=== PATIENT | female | born 1965 | race Caucasian/White ===

== ENCOUNTER 2020-05-11 11:27 | Observation (INO) | payer SELFPAY ==
[2020-05-11] VITALS (16 sets, daily range): BP systolic 87–153; BP diastolic 55–96; PULSE 92–120; RESP 13–28; TEMP 36.9; O2SAT 93–98; BMI 31.3
[2020-05-11] MEDS: EPINEPHrine 1 mg/mL INJ 0.3 MG IM ×3 (11:32→15:15)
[2020-05-11] MEDS: famotidine 20 mg/2 mL INJ 40 MG IVP (11:46)
[2020-05-11] MEDS: diphenhydrAMINE 50 mg/mL SDV 1mL IVP (11:47)
[2020-05-11] MEDS: sodium chloride 0.9% 1,000 ML 999 ML IV ×2 (11:56→14:59)
--- NOTE | 2020-05-11 12:24 | W.ED.ALLEREA ---
HPI - Allergic Reaction General: Chief complaint: Allergic Reaction Stated complaint: allergic reaction Time Seen by Provider: 05/11/20 11:31 Source: patient Mode of arrival: ambulatory Limitations: no limitations History of Present Illness: HPI narrative: Lesli is a nice 54-year-old female who comes in complaining of difficulty swallowing. Patient states that Sunday night she started to have itching on her hands and soles. She took a Benadryl and felt the next morning like she was better but still had itching in these areas. She is from [facility] and was bringing her father back here to his home and on the way she began to develop hives diffusely so they stopped at a hospital in [facility]. There she was given a dose of IM epinephrine, placed on a Medrol Dosepak and prescribed an antihistamine. Patient states she took her first dose of steroid this morning. She has been taking Benadryl but she cannot afford the EpiPen. The patient developed difficulty swallowing and a hoarse voice approximately 1 hour before arriving here. She does admit to 1 episode of diarrhea but denies any generalized weakness or low blood pressures. Upon thorough review the patient cannot think of any new foods, medicines or any new possible allergen source. Review of Systems General: Reports: ROS unobtainable due to medical condition PFSH ED PFSH: Medical History (Updated 05/11/20 @ 14:45 by Fredrick Redd MD) Anxiety Arrhythmia Depression Family history of coronary artery disease Surgical History (Updated 05/11/20 @ 14:45 by Fredrick Redd MD) H/O tubal ligation Social History (Updated 05/11/20 @ 14:45 by Fredrick Redd MD) Smoking and tobacco status: never smoked Alcohol intake: never Substance/Drug Use: never Physical Exam Const: COMMON NORMALS: no acute distress, patient oriented x3, no limitations, healthy appearing and well nourished GENERAL APPEARANCE: cooperative, well kempt and well developed HENMT: COMMON NORMALS: normocephalic, atraumatic, external ears normal, EAC's normal and Normal external nose present HEAD & SCALP: normal to inspection, normocephalic and atraumatic FACE & SINUS: normal facial exam and face symmetric NOSE: Normal external nose present and Normal nares present EXTERNAL EAR: Yes external ears normal EXTERNAL AUDITORY CANAL: EAC's normal MOUTH: Normal oral and palatal mucosa present, lip normal and tongue normal THROAT: posterior oropharynx normal and other (No stridor. Hoarse voice noted. Patient swallowing without any difficulty.) Eye: COMMON NORMALS: Equal, round and reactive pupils present and conjunctivae normal GENERAL EYE: appearance normal, both eyes and all related structures ALIGNMENT: Yes alignment normal PERIORBITAL: periorbital findings normal EYELID: eyelids normal CONJUNCTIVA: Yes conjunctivae normal SCLERA: sclerae normal PUPIL: Yes Equal, round and reactive pupils present Neck/C-Spine: COMMON NORMALS: full ROM, no lymphadenopathy, supple, no meningeal signs and no JVD GENERAL: Yes normal visual inspection and Yes trachea midline Chest: COMMONS NORMALS: normal inspection of the chest and normal palpation of entire chest wall Resp: COMMON NORMALS: normal respiratory effort, No retractions and No use of accessory muscles EFFORT & INSPECTION: Yes able to speak in complete sentences and Yes symmetric chest movement AUSCULTATION: no crackles, no rales, no rhonchi and no wheezes Cardio: COMMON NORMALS: no JVD, regular rate, regular rhythm, S1 normal heart sound present and S2 normal heart sound present RATE: regular rate RHYTHM: regular rhythm HEART SOUNDS: S1 normal heart sound present, S2 normal heart sound present, no click, no gallops, no murmurs, no rubs and abnormal split S2 GI: COMMON NORMALS: Soft to palpation and No hepatosplenomegaly present PALPATION: Yes Soft to palpation, No Tenderness to palpation present (GI), No Guarding due to palpation present (GI), No Rigid due to palpation, Yes No hepatosplenomegaly present, No Hernia present, No Palpable mass present and No Pulsatile mass present : COMMON NORMALS: Yes no CVA tenderness BLADDER/KIDNEY EXAM: Yes no CVA tenderness EXTERNAL FEMALE EXAM: No Hernia present Back/Pelvis: COMMON NORMALS: no CVA tenderness, thoracic and lumbar spine normal to inspection, no thoracic nor lumbar tenderness and thoraco-lumbar ROM normal Extremity: COMMON NORMALS: normal to inspection, full ROM, capillary refill normal, no joint enlargement, no clubbing, cyanosis or edema and no calf tenderness Neuro: COMMON NORMALS: patient oriented x3, CN's II-XII intact bilaterally, moves all extremities, no focal motor deficits and no sensory deficits noted MENINGEAL SIGNS: Yes no meningeal signs SPEECH: speech normal Psych: COMMON NORMALS: mental status grossly normal, Normal thought process present, cooperative, normal affect, speech normal and activity/motor behavior normal APPEARANCE: Yes well kempt SPEECH: Yes normal speech THOUGHT PROCESS: Normal thought process present Skin: COMMON NORMALS: turgor normal, no jaundice, no petechiae and no mottling NARRATIVE SKIN EXAM: Diffuse hives with significant swelling noted. GENERAL SKIN EXAM: turgor normal Course Vital Signs: Vital signs: Vital Signs Temperature 98.5 F 05/11/20 20:52 Pulse Rate 105 H 05/11/20 20:52 Respiratory Rate 22 H 05/11/20 20:52 Blood Pressure 126/77 05/11/20 20:52 Pulse Oximetry 94 05/11/20 21:32 MDM - Allergic Reaction MDM Narrative: Medical decision making narrative: 1306 -at this time the patient is doing better. Her hoarseness is improving slowly with occasional episodes of her natural voice coming back but yet the hoarseness does persist. The patient is not in respiratory distress and and she does not exhibit any stridor. Her hives are improving and her blood pressure has been stable. 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 I reviewed the case in full with Dr. Redd he is agreeable to admission to our ICE. He agrees with holding off prophylactic intubation as the patient is improving but just continuing to monitor her. As her blood pressure is okay he also agrees with just intermittent bolus dosing of IM epinephrine as needed. He agrees with 1 more dose here to see if that will resolve her hoarseness. I reviewed this plan with the patient and she is in agreement to stay. We will add an EKG and baseline labs since we are keeping her here in the hospital. Lab Data: Labs: Lab Results 05/11/20 05/11/20 05/11/20 Range/Units 11:38 11:38 11:38 WBC 14.6 H (4.0-10.0) 10^3/ uL RBC 5.05 (4.1-5.3) 10^6/u L Hgb 14.8 (11.5-15.3) g/dL Hct 46.6 (37.0-47.0) % MCV 92.3 (81-99) fL MCH 29.3 (28.0-34.0) pg MCHC 31.8 (30.0-36.0) g/dL RDW 13.4 (12.1-15.1) % Plt Count 411 H (130-400) 10^3/c mm MPV 10.7 H (7.4-10.4) fL Neut % (Auto) 80.5 % Lymph % (Auto) 13.7 % Desha % (Auto) 5.3 % Eos % (Auto) 0.0 % Baso % (Auto) 0.1 % Neut # (Auto) 11.8 H (1.8-7.7) 10^3/u L Lymph # (Auto) 2.0 (0.8-4.8) 10^3/u L Desha # (Auto) 0.8 (0.2-0.9) 10^3/u L Eos # (Auto) 0.0 (0.0-0.8) 10^3/u L Baso # (Auto) 0.0 (0.0-0.1) 10^3/u L Nucleated RBC % (a uto) 0 % Nucleated RBCs # 0.0 /100WBC PT 12.50 (10.5-13.3) SECO NDS INR 0.91 (0.8-1.2) Sodium 139 (136-145) mmol/L Potassium 3.9 (3.5-5.1) mmol/L Chloride 101 (98-107) mmol/L Carbon Dioxide 24 (22-29) mmol/L Anion Gap 17.9 (5-19) BUN 11 (6-20) mg/dL Creatinine 0.7 (0.5-0.9) mg/dL GFR Calculation 86.6 L (90-130) mL/min Glucose 105 (65-115) mg/dL Calculated Osmolal ity 284 L (285-295) mOsm/k g Calcium 10.5 (8.5-10.5) mg/dL Magnesium 2.3 (1.7-2.3) mg/dL Total Bilirubin 0.3 (0.15-1.2) mg/dL AST 23 (0-32) U/L ALT 20 (0-33) U/L Alkaline Phosphata se 74 (35-105) IU/L Total Protein 8.3 (6.6-8.7) g/dL Albumin 4.9 (3.5-5.2) g/dL Globulin 3.4 (1.3-4.6) g/dL EKG Data^: EKG 1: Attestation: I personally reviewed and interpreted this EKG as follows: EKG interpretation date: 05/11/20 EKG interpretation time: 13:20 Interpretation: Normal sinus rhythm at 93 beats a minute, normal axis, no acute ST-T wave changes, no blocks, normal intervals. Critical Care Time Critical Care Time: Critical Care Time: Yes Total Critical Care Time: 30 Attestation: Critical care time was necessitated as I had to give my patient undivided attention focusing on all parts of her care. Critical care time consisted of airway evaluation and reevaluation on multiple occasions. Critical care time consisted of careful history taking as well as reevaluating the patient's response to epinephrine. Critical care time consisted of coordinating care with hospitalist and arranging for admission. 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
--- NOTE | 2020-05-11 12:26 | XRR_ITS ---
PROCEDURE INFORMATION: Exam: XR Soft Tissue Neck Exam date and time: 05/11/2020 12:59 PM Age: 54 years old Clinical indication: Other: Hoarsness TECHNIQUE: Imaging protocol: XR of the soft tissues of the neck. COMPARISON: No relevant prior studies available. FINDINGS: Airway: Normal. No abnormal narrowing. Soft tissues: Normal. Normal epiglottis. Bones/joints: Mild osteoarthritis cervical spine XR/XR soft tissue neck 70145 IMPRESSION: Negative soft tissue examination Mild osteoarthritis cervical spine
--- NOTE | 2020-05-11 12:52 | ECG_ITS ---
[facility] Test Date: 2020-05-11 Pat Name: Lesli Livingston Department: Room: Gender: Female Rn Imaging: : 1965 Requested By: Kierra Cedillo Order Number: [id number] Abisai MD: Oliver Gomez M.D. Measurements Intervals Ina Rate: 93 P: 55 FL: 165 QRS: 15 QRSD: 94 T: 18 QT: 363 QTc: 451 Interpretive Statements SINUS RHYTHM POSSIBLE LEFT ATRIAL ENLARGEMENT [-0.1mV P WAVE IN V1/V2] NONSPECIFIC T-WAVE ABNORMALITY INTERPRETATION BASED ON A DEFAULT AGE OF 40 YEARS No previous ECG available for comparison Electronically Signed On 05-11-2020 23:43:25 CDT by Oliver Gomez M.D. [id number]
[2020-05-11 13:09] LABS: Basophils % 0.1 %; Hematocrit 46.6 % (37.0-47.0); Hemoglobin 14.8 g/dL (11.5-15.3); Lymphocytes % 13.7 %; Mean Corpuscular HGB Conc 31.8 g/dL (30.0-36.0); Mean Corpuscular Hemoglobin 29.3 pg (28.0-34.0); Mean Corpuscular Volume 92.3 fL (81-99); Mean Platelet Volume 10.7 fL (7.4-10.4); Monocytes # 0.8 10^3/uL (0.2-0.9); Monocytes % 5.3 %; Neutrophils # 11.8 10^3/uL (1.8-7.7); Neutrophils % 80.5 %; Nucleated Red Blood Cells % 0 %; Platelet Count 411 10^3/cmm (130-400); Red Blood Count 5.05 10^6/uL (4.1-5.3); Red Cell Distribution Width 13.4 % (12.1-15.1); White Blood Count 14.6 10^3/uL (4.0-10.0)
[2020-05-11 13:20] LABS: Alanine Aminotransferase 20 U/L (0-33); Albumin Level 4.9 g/dL (3.5-5.2); Alkaline Phosphatase 74 IU/L (35-105); Anion Gap 17.9 (5-19); Aspartate Amino Transferase 23 U/L (0-32); Blood Urea Nitrogen 11 mg/dL (6-20); Calcium 10.5 mg/dL (8.5-10.5); Carbon Dioxide 24 mmol/L (22-29); Chloride 101 mmol/L (98-107); Globulin 3.4 g/dL (1.3-4.6); Glomerular Filtration Rate 86.6 mL/min (90-130); Glucose 105 mg/dL (65-115); Magnesium 2.3 mg/dL (1.7-2.3); Osmolality Calculated 284 mOsm/kg (285-295); Potassium 3.9 mmol/L (3.5-5.1); Sodium 139 mmol/L (136-145); Total Bilirubin 0.3 mg/dL (0.15-1.2); Total Protein 8.3 g/dL (6.6-8.7)
[2020-05-11 13:40] LABS: INR 0.91 (0.8-1.2)
[2020-05-11 13:47] LABS: Bilirubin Urine Neg (NEGATIVE); Blood Urine Neg (Negative); Glucose Urine UA Norm (Normal); Ketones Urine Negative (Negative); Leukocyte Esterase Urine Negative (Negative); Nitrate Urine Negative (Negative); Protein Urine Neg (Negative); Specific Gravity, Urine 1.005 (1.005-1.030); Urine Appearance Clear (CLEAR); Urine Color Yellow (Yellow); Urobilinogen Urine Norm (Negative); pH Urine 6 (5-7)
[2020-05-11 13:48] LABS: Add Urine Culture? No; Bacteria Urine TRACE; Squamous Epithelial Cell Urine 0-4 (0-5); WBC Urine 0-4 /hpf (0-5)
[2020-05-11] MEDS: diphenhydrAMINE 50 mg/mL SDV 1mL 25 MG IVP ×3 (14:19→18:10)
--- NOTE | 2020-05-11 14:35 | PM.HP ---
Providers/Chief Complaint Chief Complaint: allergic reaction History of Present Illness Lesli Livingston is a 54 year old female with a past medical history of depression, postmenopausal state who presents to [facility] due to concerns for anaphylactic reaction. Patient is from [facility], she has been helping her father move up to [place], on Sunday morning, nothing out of the ordinary, she was helping pack away some of his stuff, she had dinner at her sister's house, nothing out of the ordinary, had chicken, steak, potatoes, denies any alcohol consumption, denies any drug use, denies any ÁNGELA inhibitor use, denies any exposure to poison jah, denies any bee stings, no denies fevers, denies exposure to COVID-19. Patient then went to her motel, when she said she had a headache, she took an NSAID, and went to sleep. Roughly about an hour after she started develop pruritus of her plantar aspect of her hand, and the plantar aspect of her feet, with pruritus and a rash. She itched throughout the night, her symptoms abated slightly. She started on her road trip from [place] to [place], the drive is roughly 16 hours, they got to [facility], which was they are stopping point. When she developed more of a diffuse rash, with the severe pruritus, no lip or tongue swelling or difficulty breathing at that point. She presented to the ER over there, was diagnosed with an allergic reaction, given steroids, Benadryl, Xyzal, and her symptoms abated. As soon as she got back to the motel roughly 10 PM, her symptoms returned, with diffuse pruritus, itching but everything was closed and she was unable to hop picker her medications. So she started to drive in the morning Sunday back to [place], 6 hours from [place], she stated that the rash was much more diffuse, severe itching, and she felt that her throat was closing up, she also had lip swelling, no difficulties's breathing, but did have trouble swallowing the pills that she had. She presented to [facility], diagnosed with an anaphylactic reaction, received Benadryl, Pepcid, epinephrine, rash has improved, lip swelling has improved, throat swelling has improved, it is able to talk, no significant desaturations, no oxygen requirement, hospitalist team was called for admission. 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 She does also state that she had an allergic reaction to the tape that is found on telemetry leads,, not anaphylactic reaction. No other allergic reactions that she knows of. No fevers, no chills, no nausea, no vomiting, no chest pain, shortness of breath. She does state that she recently started her estradiol progesterone, roughly 8 days ago for postmenopausal symptoms. Review of Systems Const: Denies: fever(s), chills, fatigue or malaise Eyes: Denies: change in vision or blurry vision ENMT: Denies: nasal congestion Resp: Denies: dyspnea, productive cough, non-productive cough or wheezing GI: Denies: abdominal pain, nausea, vomiting, hematemesis, diarrhea, constipation, hematochezia or melena : Denies: flank pain, dysuria or urinary frequency Musc: Denies: neck pain or back pain Neuro: Denies: headache(s), dizziness or vertigo Psych: Denies: anxiety or depression Endo: Denies: polyuria or polydipsia Medications/Allergies Home Medications Medication Instructions Recorded Confirmed Last Taken Type Effexor XR 75 mg PO DAILY 05/11/20 05/11/20 05/11/20 History Vitamin B-50 1 tab PO DAILY 05/11/20 05/11/20 Unknown History carvedilol 6.25 mg PO BID 05/11/20 05/11/20 05/11/20 History duloxetine 60 mg PO DAILY 05/11/20 05/11/20 05/10/20 History epinephrine [EpiPen] See Rx Instructions .ROUTE .COMPLEX 05/11/20 05/11/20 Unknown History estradiol-progesterone See Rx Instructions .ROUTE .COMPLEX 05/11/20 05/11/20 05/10/20 History levocetirizine [Xyzal] 5 - 10 mg PO DAILY 05/11/20 05/11/20 05/11/20 History methylprednisolone [Medrol (Jabari)] See Rx Instructions .ROUTE .COMPLEX 05/11/20 05/11/20 05/11/20 History Allergies Allergy/AdvReac Type Severity Reaction Status Date / Time amoxicillin Allergy Unknown Verified 05/11/20 12:42 cephalexin [From Keflex] Allergy Unknown Verified 05/11/20 12:42 ciprofloxacin [From Cipro] Allergy Unknown Verified 05/11/20 12:42 Penicillins Allergy Unknown Verified 05/11/20 12:42 PFSH Acute PFSH: Medical History (Updated 05/11/20 @ 14:45 by Fredrick Redd MD) Anxiety Arrhythmia Depression Family history of coronary artery disease Surgical History (Updated 05/11/20 @ 14:45 by Fredrick Redd MD) H/O tubal ligation Social History (Updated 05/11/20 @ 14:45 by Fredrick Redd MD) Smoking and tobacco status: never smoked Alcohol intake: never Substance/Drug Use: never Vitals/I&O/Wt Last Vital Signs Pulse 111 H 05/11/20 14:21 Resp 18 05/11/20 14:21 BP 139/96 05/11/20 14:21 Pulse Ox 93 05/11/20 14:21 Weight last 48 hrs Weight 80.286 kg Physical Exam Const: COMMON NORMALS: no acute distress and patient oriented x3 GENERAL APPEARANCE: cooperative and comfortable HENMT: COMMON NORMALS: normocephalic HEAD & SCALP: normocephalic Eye: COMMON NORMALS: Equal, round and reactive pupils present and EOMs intact bilaterally GENERAL EYE: appearance normal, both eyes and all related structures PUPIL: Yes Equal, round and reactive pupils present DIRECT OPHTHALMOSCOPY: Yes no papilledema Neck/C-Spine: COMMON NORMALS: full ROM, no lymphadenopathy, no JVD and Thyroid normal THYROID: Thyroid normal Lymph: LYMPHATIC: no lymphadenopathy noted Resp: COMMON NORMALS: normal respiratory effort, No retractions, No use of accessory muscles and clear to auscultation bilaterally AUSCULTATION: clear to auscultation bilaterally Cardio: COMMON NORMALS: no JVD, regular rhythm, S1 normal heart sound present, S2 normal heart sound present, No gallops present (Cardio), No clicks present (Cardio) and No murmurs present (Cardio) RATE: tachycardic RHYTHM: regular rhythm HEART SOUNDS: S1 normal heart sound present and S2 normal heart sound present GI: COMMON NORMALS: Normal to inspection, nondistended, normoactive bowel sounds present, Soft to palpation, non-tender and No hepatosplenomegaly present PALPATION: Yes Soft to palpation and Yes No hepatosplenomegaly present Extremity: COMMON NORMALS: normal to inspection, full ROM and no pedal edema Neuro: COMMON NORMALS: patient oriented x3, CN's II-XII intact bilaterally, moves all extremities and no focal motor deficits Psych: COMMON NORMALS: mental status grossly normal, Normal thought process present and cooperative THOUGHT PROCESS: Normal thought process present Skin: NARRATIVE SKIN EXAM: Diffuse maculopapular rash no lip swelling, no tongue swelling, no posterior pharyngeal swelling Data : 05/11/20 11:38 05/11/20 11:38 A&P Assessment and plan (1) Anaphylaxis: -Diffuse maculopapular rash, with pruritus, with lip swelling, throat swelling -Currently improving -Possible NSAID type 3-6 allergic reaction -Possible allergic reaction to estradiol Plan: -Admit to ICU for biphasic anaphylactic reaction -Avoid NSAID use, avoid estradiol -Epinephrine IM as needed, will consider epinephrine drip, if ineffective that she is on beta-gerri can try glucagon, hold beta-gerri for now -Continue telemetry monitoring -Continue Benadryl -Continue Pepcid -Continue cetirizine -Monitor respiratory status closely -Continue Solu-Medrol - Status: Acute Qualifiers: Encounter type: initial encounter Qualified Code(s): T78.2XXA - Anaphylactic shock, unspecified, initial encounter (2) Anxiety: Status: Acute (3) Depression: Status: Acute (4) Arrhythmia: Status: Acute Attestations Medical Necessity Statement*: Patient requires hospitalization, outpatient with observation, for anaphylactic reaction Coding Level of Care Code 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
[2020-05-11] MEDS: cetirizine 10 mg Tablet PO (15:13)
[2020-05-11] MEDS: sodium chloride 0.9% 1,000 ML 100 ML IV (15:27)
[2020-05-11] MEDS: cloNIDine 0.1 mg Tablet PO (19:05)
[2020-05-11] MEDS: hyDROXYzine 25 mg Capsule PO (19:05)
[2020-05-11] MEDS: enoxaparin 40 mg/0.4 mL Syringe SUBCUT (21:10)
[2020-05-11] MEDS: famotidine 20 mg/2 mL INJ IVP (21:11)
[2020-05-12] VITALS (18 sets, daily range): BP systolic 84–151; BP diastolic 55–92; PULSE 68–104; RESP 11–30; TEMP 36.9; O2SAT 91–97
[2020-05-12] MEDS: sodium chloride 0.9% 1,000 ML 100 ML IV (01:16)
[2020-05-12 05:00] LABS: Basophils % 0.1 %; Hematocrit 37.4 % (37.0-47.0); Hemoglobin 11.6 g/dL (11.5-15.3); Lymphocytes # 1.7 10^3/uL (0.8-4.8); Lymphocytes % 11.8 %; Mean Corpuscular Volume 93.5 fL (81-99); Monocytes # 0.5 10^3/uL (0.2-0.9); Monocytes % 3.6 %; Neutrophils # 11.9 10^3/uL (1.8-7.7); Neutrophils % 83.5 %; Nucleated Red Blood Cells % 0 %; Platelet Count 301 10^3/cmm (130-400); Red Cell Distribution Width 13.5 % (12.1-15.1); White Blood Count 14.2 10^3/uL (4.0-10.0)
--- NOTE | 2020-05-12 05:33 | PC.NURSE ---
SHIFT SUMMARY PT HAS REMAINED ALERT AND ORIENTATED. HIVES ARE STARTING TO DISAPPEAR. PT HAS NOT COMPLAINED OF ANYTHING LIKE WHAT SHE WAS ADMITTED WITH SO FAR IN HER THROAT FEELING LIKE ITS SWELLING. PT IV REMAINS PATENT. PT HAS BEEN AFEBRILE.
[2020-05-12 05:34] LABS: Alanine Aminotransferase 14 U/L (0-33); Albumin Level 3.8 g/dL (3.5-5.2); Alkaline Phosphatase 56 IU/L (35-105); Anion Gap 14.9 (5-19); Aspartate Amino Transferase 18 U/L (0-32); Blood Urea Nitrogen 11 mg/dL (6-20); Calcium 8.5 mg/dL (8.5-10.5); Carbon Dioxide 22 mmol/L (22-29); Chloride 111 mmol/L (98-107); Globulin 3.1 g/dL (1.3-4.6); Glomerular Filtration Rate 127.6 mL/min (90-130); Glucose 140 mg/dL (65-115); Magnesium 2.2 mg/dL (1.7-2.3); Osmolality Calculated 296 mOsm/kg (285-295); Phosphorus 3.5 mg/dL (2.5-4.5); Potassium 3.9 mmol/L (3.5-5.1); Sodium 144 mmol/L (136-145); Total Bilirubin 0.3 mg/dL (0.15-1.2); Total Protein 6.9 g/dL (6.6-8.7)
--- NOTE | 2020-05-12 07:55 | PC.NURSE ---
ROUNDED WITH DR HEATH, STOP IVF, STOP ESTRADIAL & NAPROXEN. SHE WILL NEED TO FOLLOW UP WITH AN [employer] [facility] WHEN SHE GETS BACK HOME. NO HIVES NOTED AT PRESENT. NO SWELLING TO LIPS OR TONGUE. PLAN TO MONITOR FOR A FEW HOURS THEN DISCHARGE. WILL DO MEDS TO BEDS FROM [facility]
--- NOTE | 2020-05-12 08:16 | PC.NURSE ---
Due to severity of patient's allergic reaction was unable to assess for suicidal ideation.
[2020-05-12] MEDS: duloxetine 20 mg Capsule 60 MG PO (10:01)
[2020-05-12] MEDS: cloNIDine 0.1 mg Tablet PO (10:02)
[2020-05-12] MEDS: hyDROXYzine 25 mg Capsule PO (10:02)
[2020-05-12] MEDS: venlafaxine ER (24HR) 75 mg Capsule PO (10:02)
[2020-05-12] MEDS: cetirizine 10 mg Tablet PO (10:02)
[2020-05-12] MEDS: famotidine 20 mg/2 mL INJ IVP (10:03)
--- NOTE | 2020-05-12 10:58 | PM.DCS ---
Discharge Providers Date of Admission: 05/11/20 13:06 Date of Discharge: May 12, 2020 Attending Provider at Admission: Fredrick Redd MD Attending Provider at Discharge: Fredrick Redd MD Diagnoses at Discharge Discharge Diagnosis (1) Anaphylaxis: Status: Acute Qualifiers: Encounter type: initial encounter Qualified Code(s): T78.2XXA - Anaphylactic shock, unspecified, initial encounter (2) Anxiety: Status: Acute (3) Depression: Status: Acute (4) Arrhythmia: Status: Acute Reason for Visit Reason for Visit: allergic reaction Hospital Course Discharge Summary: Lesli Livingston is a 54 year old female with a past medical history of depression, postmenopausal state who presents to [facility] due to concerns for anaphylactic reaction. Patient is from [facility], she has been helping her father move up to [place], on Sunday morning, nothing out of the ordinary, she was helping pack away some of his stuff, she had dinner at her sister's house, nothing out of the ordinary, had chicken, steak, potatoes, denies any alcohol consumption, denies any drug use, denies any ÁNGELA inhibitor use, denies any exposure to poison jah, denies any bee stings, no denies fevers, denies exposure to COVID-19. Patient then went to her motel, when she said she had a headache, she took an NSAID, and went to sleep. Roughly about an hour after she started develop pruritus of her plantar aspect of her hand, and the plantar aspect of her feet, with pruritus and a rash. She itched throughout the night, her symptoms abated slightly. She started on her road trip from [place] to [place], the drive is roughly 16 hours, they got to [facility], which was they are stopping point. When she developed more of a diffuse rash, with the severe pruritus, no lip or tongue swelling or difficulty breathing at that point. She presented to the ER over there, was diagnosed with an allergic reaction, given steroids, Benadryl, Xyzal, and her symptoms abated. 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 So she started to drive in the morning Sunday back to [place], 6 hours from [place], she stated that the rash was much more diffuse, severe itching, and she felt that her throat was closing up, she also had lip swelling, no difficulties's breathing, but did have trouble swallowing the pills that she had. She presented to [facility], diagnosed with an anaphylactic reaction, received Benadryl, Pepcid, epinephrine, rash has improved, lip swelling has improved, throat swelling has improved, it is able to talk, no significant desaturations, no oxygen requirement, hospitalist team was called for admission. 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 She does also state that she had an allergic reaction to the tape that is found on telemetry leads,, not anaphylactic reaction. No other allergic reactions that she knows of. No fevers, no chills, no nausea, no vomiting, no chest pain, shortness of breath. She does state that she recently started her estradiol progesterone, roughly 8 days ago for postmenopausal symptoms. In the emergency room patient received 1 dose of epinephrine, Benadryl, Pepcid, Solu-Medrol, her rash improved, pruritus improved, throat swelling improved, voice improved, intubation was not required, she protected her airway, no shortness of breath. Patient was admitted to the intensive care unit for monitoring for biphasic anaphylactic reaction, over the next 24 hours her rash became minimal, pruritus was minimal, voice improved, throat swelling improved, back to baseline, no shortness of breath. Patient was discharged on Benadryl and hydroxyzine as needed for pruritus and swelling and rash. Patient was advised to not drive and use sedating medications. She was prescribed a long prednisone taper to prevent a biphasic occurrence of her anaphylactoid reaction. In addition she was given an EpiPen for anaphylactoid reactions, and if she were to have to use the medication go immediately to the emergency room. Just before discharge she was doing well, minimal rash, minimal pruritus, no respiratory compromise, no airway compromise, no throat swelling. In terms of the cause of patient's anaphylactoid reaction, I think that it is a type III- aspirin allergy, more specifically a allergy to naproxen as her symptoms began after she took naproxen. I advised patient for now to avoid naproxen and any NSAIDs, and to follow-up with her regular physician for allergy testing and referral to an development vice president. In addition it could be a reaction to her estradiol progesterone, which I have advised her to stop using, and to follow-up with her regular physician. Physical Exam Const: COMMON NORMALS: no acute distress and patient oriented x3 HENMT: COMMON NORMALS: normocephalic HEAD & SCALP: normocephalic Neck/C-Spine: COMMON NORMALS: no JVD Resp: COMMON NORMALS: normal respiratory effort, No retractions, No use of accessory muscles and clear to auscultation bilaterally AUSCULTATION: clear to auscultation bilaterally Cardio: COMMON NORMALS: no JVD, regular rate, regular rhythm, S1 normal heart sound present and S2 normal heart sound present RATE: regular rate RHYTHM: regular rhythm HEART SOUNDS: S1 normal heart sound present and S2 normal heart sound present GI: COMMON NORMALS: Normal to inspection, nondistended, normoactive bowel sounds present, Soft to palpation, non-tender, No hepatosplenomegaly present, no masses and no bruits PALPATION: Yes Soft to palpation and Yes No hepatosplenomegaly present Extremity: COMMON NORMALS: capillary refill normal, no clubbing, cyanosis or edema, no calf tenderness and no pedal edema Neuro: COMMON NORMALS: patient oriented x3 Psych: COMMON NORMALS: mental status grossly normal Discharge Data Data Completed and Pending: Completed Studies During Hospitalization Category [id number] Stat Exams 05/11/20 12:26 Completed Pending at discharge Category Date Time Status Comprehensive Met abolic Panel AM LA BS Lab 05/13/20 04:00 Ordered Comprehensive Met abolic Panel AM LA BS Lab 05/14/20 04:00 Ordered Magnesium AM LABS Lab 05/13/20 04:00 Ordered Magnesium AM LABS Lab 05/14/20 04:00 Ordered Phosphorus AM LAB S Lab 05/13/20 04:00 Ordered Phosphorus AM LAB S Lab 05/14/20 04:00 Ordered Labs from last 24 hours 05/12/20 05/12/20 05/11/20 04:40 04:40 13:10 WBC 14.2 H RBC 4.00 L Hgb 11.6 Hct 37.4 MCV 93.5 MCH 29.0 MCHC 31.0 RDW 13.5 Plt Count 301 MPV 10.0 Neut % (Auto) 83.5 Lymph % (Auto) 11.8 Owen % (Auto) 3.6 Eos % (Auto) 0.0 Baso % (Auto) 0.1 Neut # (Auto) 11.9 H Lymph # (Auto) 1.7 Owen # (Auto) 0.5 Eos # (Auto) 0.0 Baso # (Auto) 0.0 Nucleated RBC % (a uto) 0 Nucleated RBCs # 0.0 PT INR Sodium 144 Potassium 3.9 Chloride 111 H Carbon Dioxide 22 Anion Gap 14.9 BUN 11 Creatinine 0.5 GFR Calculation 127.6 Glucose 140 H Calculated Osmolal ity 296 H Calcium 8.5 Phosphorus 3.5 Magnesium 2.2 Total Bilirubin 0.3 AST 18 ALT 14 Alkaline Phosphata se 56 Total Protein 6.9 Albumin 3.8 Globulin 3.1 Urine Color Yellow Urine Appearance Clear Urine pH 6 Ur Specific Gravit y 1.005 Urine Protein Neg Urine Glucose (UA) Norm Urine Ketones Negative Urine Blood Neg Urine Nitrate Negative Urine Bilirubin Neg Urine Urobilinogen Norm Ur Leukocyte Guerline ase Negative Urine RBC None Urine WBC 0-4 H Ur Squamous Epith Cells 0-4 H Urine Bacteria Trace 05/11/20 05/11/20 05/11/20 11:38 11:38 11:38 WBC 14.6 H RBC 5.05 Hgb 14.8 Hct 46.6 MCV 92.3 MCH 29.3 MCHC 31.8 RDW 13.4 Plt Count 411 H MPV 10.7 H Neut % (Auto) 80.5 Lymph % (Auto) 13.7 Owen % (Auto) 5.3 Eos % (Auto) 0.0 Baso % (Auto) 0.1 Neut # (Auto) 11.8 H Lymph # (Auto) 2.0 Owen # (Auto) 0.8 Eos # (Auto) 0.0 Baso # (Auto) 0.0 Nucleated RBC % (a uto) 0 Nucleated RBCs # 0.0 PT 12.50 INR 0.91 Sodium 139 Potassium 3.9 Chloride 101 Carbon Dioxide 24 Anion Gap 17.9 BUN 11 Creatinine 0.7 GFR Calculation 86.6 L Glucose 105 Calculated Osmolal ity 284 L Calcium 10.5 Phosphorus Magnesium 2.3 Total Bilirubin 0.3 AST 23 ALT 20 Alkaline Phosphata se 74 Total Protein 8.3 Albumin 4.9 Globulin 3.4 Urine Color Urine Appearance Urine pH Ur Specific Gravit y Urine Protein Urine Glucose (UA) Urine Ketones Urine Blood Urine Nitrate Urine Bilirubin Urine Urobilinogen Ur Leukocyte Guerline ase Urine RBC Urine WBC Ur Squamous Epith Cells Urine Bacteria Vitals: Last Vital Signs Temp 98.5 F 05/12/20 04:00 Pulse 100 05/12/20 08:32 Resp 25 H 05/12/20 08:32 BP 131/92 05/12/20 08:32 Pulse Ox 95 05/12/20 08:32 Discharge Plan Discharge Patient Disposition: Home, Self-Care Condition: Stable Prescriptions: New clonidine HCl 0.1 mg Tablet 0.1 mg PO BID 30 Days Qty: 60 RF: 0 cetirizine 10 mg Tablet 10 mg PO DAILY 10 Days Qty: 10 RF: 0 hydroxyzine pamoate 25 mg Capsule 25 mg PO QID PRN (Reason: Itching) 10 Days Qty: 40 RF: 0 Benadryl Allergy 25 mg tablet 25 mg PO Q8H PRN (Reason: allergic reaction) 10 Days Qty: 30 RF: 0 prednisone 10 mg tablet See Rx Instructions .ROUTE .COMPLEX Qty: 53 RF: 0 Pepcid 20 mg tablet 20 mg PO BID 10 Days Qty: 20 RF: 0 Continued duloxetine 20 mg Capsule,Delayed Release(Dr/Ec) 60 mg PO DAILY RF: 0 Effexor XR 75 mg PO DAILY RF: 0 Vitamin B-50 1 tab PO DAILY RF: 0 EpiPen 0.3 mg/0.3 mL Auto-Injector See Rx Instructions .ROUTE .COMPLEX RF: 0 Changed EpiPen 0.3 mg/0.3 mL Auto-Injector See Rx Instructions .ROUTE .COMPLEX Qty: 2 RF: 0 Held carvedilol 6.25 mg Tablet 6.25 mg PO BID RF: 0 Hold Instructions: Resume on 05/26/20. Until seen by primary care Discontinued methylprednisolone [Medrol (Ajbari)] 4 mg Tablets,Dose Pack See Rx Instructions .ROUTE .COMPLEX RF: 0 levocetirizine [Xyzal] 5 mg Tablet 5 - 10 mg PO DAILY RF: 0 estradiol-progesterone See Rx Instructions .ROUTE .COMPLEX RF: 0 Discharge Orders: Discharge Order (Routine); Ordered 05/12/20 Ordered By: Fredrick Redd Discharge Diet: Regular Discharge Activity: Resume usual activity Patient Instructions: Antihistamine (By mouth), Clonidine (By mouth), Famotidine (By mouth), Prednisone (By mouth), Diphenhydramine (By mouth), Epinephrine (Injection), Food Allergy (DC), Anaphylaxis (DC) Activity Restrictions/Additional Instructions: -Please do not drive and use Benadryl, Atarax, or any sedating medications -If you have recurrence of anaphylactic reactions use EpiPen, and call 911, go to the emergency room -Please follow-up with primary care physician for referral for telecommunication lines 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
--- NOTE | 2020-05-12 11:35 | PC.NURSE ---
DISCHARGED HOME REVIEWED MEDS WITH PHARMACIST, PT DENIES ANY QUESTIONS. AMBULATED TO PRIVATE VEHICLE WITH THIS NURSE. PERSONAL BELONGINGS WITH PT [facility] [place] [place] PT. SHE REPORTS THAT SHE KNOWS HOW TO INJECT SELF WITH EPI PEN. ENCOURAGED TO MAKE SURE THAT FRIENDS/FAMILY ARE AWARE OF S/SX & HOW TO USE EPI PEN
== END 2020-05-12 11:35 | disposition home or self-care (01) ==
LOC: ER 13:08 → ICU 15:22
PROVIDERS: Emergency Medicine; Admitting Provider Family Medicine; Visit Provider Family Medicine
DX: T78.2XXA Anaphylactic shock, unspecified, initial encounter (principal); F41.9 Anxiety disorder, unspecified; F32.9 Major depressive disorder, single episode, unspecified; I49.9 Cardiac arrhythmia, unspecified
CPT/HCPCS: 12345; 36415; 70360; 80053; 81001; 83735; 84100; 85025; 85610; 93005; 94664; 96361; 96372; 96374; 96375; 96376; 99284; 99285; G0378; J0171; J1200; J1650; J2920; J2930; J3490; J7030